=== PATIENT | female | born 1955 | race Two or more races ===

== ENCOUNTER 2023-04-28 12:10 | Emergency (ER) | payer BC, OTHER ==
[~2023-04-28] VITALS: Ht 162.6 cm; Wt 93.5 kg
[2023-04-28] MEDS ORDERED: NAPR-746 PO (15:28)
[2023-04-28] MEDS ORDERED: CEPH500C PO (15:28)
[2023-04-28 15:29] VITALS: BP 153/86; PULSE 63; RESP 16; TEMP 98.5; O2SAT 97
== END 2023-04-28 15:39 | disposition home or self-care (01) ==
LOC: ER 12:10
DX: S80.01XA Contusion of right knee, initial encounter (principal); M25.461 Effusion, right knee; X58.XXXA Exposure to other specified factors, initial encounter; Y93.89 Activity, other specified; Y92.89 Other specified places as the place of occurrence of the external cause; Y99.8 Other external cause status
CPT/HCPCS: 73562